=== PATIENT | female | born 1940 | race Caucasian/White ===

== ENCOUNTER 2017-11-12 10:02 | Outpatient (CLI) | payer MEDICARE | END 2017-11-12 10:03 | disposition home or self-care (01) | LOC: BICMAMMO 10:02 | PROVIDERS: ATTEND Internal Medicine | DX: Z12.31 Encounter for screening mammogram for malignant neoplasm of breast (principal); Z13.820 Encounter for screening for osteoporosis; Z78.0 Asymptomatic menopausal state; M81.0 Age-related osteoporosis without current pathological fracture; M85.852 Other specified disorders of bone density and structure, left thigh; R92.1 Mammographic calcification found on diagnostic imaging of breast | CPT/HCPCS: 77063; 77067; 77080 ==

== ENCOUNTER 2017-12-20 14:34 | Outpatient (CLI) | payer MEDICARE ==
--- NOTE | 2017-12-20 16:52 | RAD ---
PA AND LATERAL VIEWS CHEST: Date: 12/20/17 HISTORY: Cough. FINDINGS: The heart size is normal. The aorta is tortuous. The lungs are well expanded without lobar consolidat ion, pneumothoraces, or pleural effusions. There are changes of old granulomatous disease. No acute o sseous abnormalities are seen. IMPRESSION: No radiographic evidence of acute cardiopulmonary process. POS: [facility]
== END 2017-12-20 14:35 | disposition home or self-care (01) ==
LOC: SCSRAD 14:34
PROVIDERS: ATTEND Internal Medicine
DX: R05 Cough (principal)
CPT/HCPCS: 71046

== ENCOUNTER 2019-05-30 07:00 | Outpatient (CLI) | payer MEDICARE ==
[2019-05-30 11:25] LABS: #Basophils 0.1 thou/uL (0.0-0.2); #Eosinphils 0.1 thou/uL (0.0-0.7); #Lymphocytes 2.5 thou/uL (1.20-3.40); #Monocytes 0.5 thou/uL (0.11-0.59); #Neutrophils 3.4 thou/uL (1.40-6.50); %Basophils 0.9 % (0.0-1.0); %Eosinophils 1.3 % (0.0-10.0); %Lymphocytes 37.6 % (21.0-51.0); %Monocytes 7.4 % (0.0-10.0); %Neutrophils 52.8 % (42.0-75.0); Mean Corpuscular Hemoglobin 30.1 pg (27.0-31.0); Mean Corpuscular Volume 91.2 fL (78.0-98.0); Platelet Count 273 thou/uL (130-400); RBC Distribution Width 11.5 % (11.5-14.5); Red Blood Cell (RBC) Count 4.97 mill/uL (4.20-5.40); White Blood Cell (WBC) Count 6.5 thou/uL (4.8-10.8)
[2019-05-30 11:29] LABS: Bacteria/HPF None Seen HPF (None Seen); Bilirubin Negative (Negative); Blood, Urine 1+ (Negative); Clarity Turbid (Clear); Glucose, Urine (Dipstick) Normal (Negative); Leukocyte 250 Leu/uL (Negative); Nitrite Negative (Negative); Protein, Urine (Dipstick) 10 mg/dL (Neg-Trace); Urobilinogen Normal mg/dL (Less than 2)
== END 2019-05-30 07:01 | disposition home or self-care (01) ==
LOC: LABBT 07:00
PROVIDERS: ATTEND Orthopaedic Surgery Hand Surgery
DX: Z01.812 Encounter for preprocedural laboratory examination (principal); M65.332 Trigger finger, left middle finger
CPT/HCPCS: 81001; 85025; 93005; 93010

== ENCOUNTER 2019-06-03 05:49 | Day surgery (SDC) | payer MEDICARE ==
[2019-05-30 10:24] VITALS: BMI 22.7
[2019-06-03] MEDS ORDERED: Bupivacaine PF 0.5% 30 ML VIAL ONE (06:22)
[2019-06-03] MEDS ORDERED: Bacitracin Zinc Ointment 30 gm TUBE ONE (06:22)
[2019-06-03] MEDS ORDERED: Betamet Acet/Betamet Na Ph 30 MG/5 ML VIAL ONE (06:22)
[2019-06-03] MEDS ORDERED: Midazolam HCl 2 mg/2 ml Vial ONE (06:44)
[2019-06-03] MEDS ORDERED: Fentanyl 100 MCG/2 ML VIAL ONE (07:23)
[2019-06-03] MEDS ORDERED: Lidocaine 1% PF 5 ML VIAL ONE (10:46)
[2019-06-03] MEDS ORDERED: Dexamethasone 20 MG/5 ML VIAL ONE (10:46)
[2019-06-03] MEDS ORDERED: Glycopyrrolate 0.2 MG/ML 5 ML SYRINGE ONE (10:46)
[2019-06-03] MEDS ORDERED: Ketorolac Tromethamine 30 MG/ML VIAL ONE (10:46)
[2019-06-03] MEDS ORDERED: EPHEDRINE 25 MG/5 ML SYRINGE ONE (10:46)
[2019-06-03] MEDS ORDERED: PROPOFOL 200 MG/20 ML VIAL ONE (10:46)
[2019-06-03] MEDS ORDERED: Ondansetron PF 4 MG/2 ML Vial ONE (10:46)
--- NOTE | 2019-06-03 10:49 | OP ---
DATE OF PROCEDURE: 06/03/2019 PREOPERATIVE DIAGNOSIS: Left middle finger A1 sarah tenosynovitis with triggering. POSTOPERATIVE DIAGNOSIS: Left middle finger A1 sarah tenosynovitis with triggering. PROCEDURE PERFORMED: Left A1 sarah trigger digit release of middle finger. COMPLICATIONS: None. ANESTHESIA: General LMA technique by YOLANDA Benito augmented by total of 16 mL of 0.5% Marcaine local infiltrated block with no epinephrine. INDICATIONS: Failed conservative treatment for diagnosis listed above. DESCRIPTION OF PROCEDURE: After successful general LMA technique, the limb was prepped and draped. The patient had time-out done appropriately. We then outlined incision following the MP joint flexion crease line, which curved as forward distally as it did radially at the level of the middle finger. We then exsanguinated the limb, inflated tourniquet to 250 mmHg pressure, had time-out done appropriately. We gave 8 mL of 0.5% Marcaine prior to procedure after we outlined incision, 1.5 cm. We carried through skin and subcutaneous tissue along the crease and dissected bluntly until we identified the radial and ulnar digital nerves. We retracted them from the center of the field as well as distally and found the A1 sarah. We released some fascia proximally, performed a direct visualization, released the A1 sarah in the midline with a Aiken blade and then inspected the tendon underneath. There was no marked tenosynovitis and no mass such as a ganglion seen. We deflated the tourniquet, obtained hemostasis. We placed a 5 mL of Celestone in the wound, doing several cycles of flexion extension to make sure it was smooth and it was. We then closed the incision with interrupted 4-0 nylon in a mattress pattern and the patient left the operating room without evidence of anesthetic or operative complication. Job ID: [id number]
== END 2019-06-03 10:05 | disposition home or self-care (01) ==
LOC: SDC 05:49
PROVIDERS: ATTEND Orthopaedic Surgery Hand Surgery
PROC: 0LN80ZZ Release Left Hand Tendon, Open Approach (ICD-10-PCS; principal; 2019-06-03)
DX: M65.332 Trigger finger, left middle finger (principal); M65.842 Other synovitis and tenosynovitis, left hand; E78.5 Hyperlipidemia, unspecified; F32.9 Major depressive disorder, single episode, unspecified; K21.9 Gastro-esophageal reflux disease without esophagitis; Z87.891 Personal history of nicotine dependence; Z79.899 Other long term (current) drug therapy; Z88.8 Allergy status to other drugs, medicaments and biological substances
CPT/HCPCS: J0690; J0702; J1100; J1885; J2001; J2250; J2405; J2704; J3010; J3490; S0020

== ENCOUNTER 2021-09-28 11:00 | Outpatient (CLI) | payer MEDICARE | END 2021-09-28 11:01 | disposition home or self-care (01) | LOC: SCSRAD 11:00 | PROVIDERS: ATTEND Internal Medicine | DX: M25.562 Pain in left knee (principal) ==

== ENCOUNTER 2021-10-03 12:37 | Outpatient (CLI) | payer MEDICARE | END 2021-10-03 12:38 | disposition home or self-care (01) | LOC: SCSMRI 12:37 | PROVIDERS: ATTEND Internal Medicine | DX: M25.562 Pain in left knee (principal); S83.242A Other tear of medial meniscus, current injury, left knee, initial encounter; M94.262 Chondromalacia, left knee; M84.362A Stress fracture, left tibia, initial encounter for fracture ==

== ENCOUNTER 2021-12-30 10:25 | Inpatient (IN) | payer MEDICARE ==
[2021-12-30] MEDS ORDERED: hydrALAZINE 20 MG/ML VIAL SLOW IVP PRN (14:46)
[2021-12-30] MEDS ORDERED: TETANUS, DIPHTHERIA TOX,ADULT (TDVAX) 0.5 ML VIAL IM ONE (14:46)
[2021-12-30] MEDS ORDERED: Ondansetron PF 4 MG/2 ML Vial IVP PRN (14:46)
[2021-12-30] MEDS ORDERED: traMADol HCl 50 MG TAB PO PRN (14:49)
[2021-12-30] MEDS ORDERED: Cyclobenzaprine 10 MG TAB PO PRN (14:49)
[2021-12-30] MEDS ORDERED: fentaNYL Citrate/PF 100 MCG/2 ML SYRINGE ONE (15:06)
[2021-12-30] MEDS ORDERED: Sodium Chloride 0.9% 100 ML ONE (15:17)
[2021-12-30] MEDS ORDERED: CEFAZOLIN 2 GM VIAL ONE (15:17)
[2021-12-30] MEDS ORDERED: PROPOFOL 200 MG/20 ML VIAL ONE (15:33)
[2021-12-30] MEDS ORDERED: Glycopyrrolate 0.2 MG/ML 5 ML SYRINGE ONE (15:33)
[2021-12-30] MEDS ORDERED: Ondansetron PF 4 MG/2 ML Vial ONE (15:33)
[2021-12-30] MEDS ORDERED: PHENYLEPHRINE-NS 100 MCG/ML 10 ML SYRINGE ONE (15:33)
[2021-12-30] MEDS ORDERED: Dexamethasone 20 MG/5 ML VIAL ONE (15:33)
[2021-12-30] MEDS ORDERED: ePHEDrine 50 MG/ML VIAL ONE (15:33)
[2021-12-30] MEDS ORDERED: Promethazine HCl 25 MG/ML VIAL IM PRN (16:47)
[2021-12-30] MEDS ORDERED: Promethazine HCl 25 MG/ML VIAL IVPB PRN (16:47)
[2021-12-30] MEDS ORDERED: Ondansetron HCl/PF 4 MG/2 ML Vial IVP PRN (16:47)
[2021-12-30] MEDS ORDERED: Fentanyl 100 MCG/2 ML VIAL ONE (17:27)
[2021-12-30] MEDS: Acetaminophen 325 MG TAB PO SCH ×2 (19:20→20:57)
[2021-12-30] MEDS: Sodium Chloride 0.9% 1,000 ML IV SCH (19:21)
[2021-12-30] MEDS: traMADol HCl 50 MG TAB PO SCH (19:24)
[2021-12-30 19:59] VITALS: BMI 23.8
[2021-12-30] MEDS ORDERED: CEFAZOLIN 2 GM in Sodium Chloride 0.9% 100 ML IVPB SCH (20:00)
[2021-12-30] MEDS: Atorvastatin Calcium 10 MG TAB PO SCH (20:56)
[2021-12-30] MEDS: Senokot S 8.6-50 MG TAB PO SCH (20:56)
[2021-12-30] MEDS: Famotidine/PF 20 mg/2ml Vial SLOW IVP SCH (20:57)
[2021-12-31] MEDS: Sodium Chloride 0.9% 1,000 ML IV SCH ×3 (00:42→15:15)
[2021-12-31] MEDS: traMADol HCl 50 MG TAB PO SCH ×4 (00:42→18:38)
[2021-12-31] MEDS: Acetaminophen 325 MG TAB PO SCH ×2 (03:23→15:15)
[2021-12-31 05:55] LABS: #Lymphocytes 1.4 thou/uL (1.20-3.40); #Monocytes 0.7 thou/uL (0.11-0.59); #Neutrophils 8.1 thou/uL (1.40-6.50); %Basophils 0.1 % (0.0-1.0); %Eosinophils 0.1 % (0.0-10.0); %Lymphocytes 13.5 % (21.0-51.0); %Monocytes 6.6 % (0.0-10.0); %Neutrophils 79.7 % (42.0-75.0); Hemoglobin 11.4 g/dL (12.0-16.0); Mean Corpuscular HGB CONC 32.6 g/dL (32.0-36.0); Mean Corpuscular Hemoglobin 30.9 pg (27.0-31.0); Mean Corpuscular Volume 94.6 fL (78.0-98.0); Mean Platelet Volume 7.8 fL (7.4-10.4); Platelet Count 252 thou/uL (130-400); RBC Distribution Width 11.4 % (11.5-14.5); Red Blood Cell (RBC) Count 3.71 mill/uL (4.20-5.40); White Blood Cell (WBC) Count 10.1 thou/uL (4.8-10.8)
[2021-12-31 06:09] LABS: PTT 27.4 sec (22.9-36.1); Prothrombin Time 13.2 sec (12.0-14.7)
[2021-12-31 06:13] LABS: Anion Gap 11 mmol/L (10-20); BUN (Urea Nitrogen) 13 mg/dL (9.8-20.1); Calc. Creatinine Clearance 67 mL/min (70-130); Calcium 8.8 mg/dL (7.8-10.44); Carbon Dioxide 25 mmol/L (23-31); Chloride 110 mmol/L (98-107); Estimated GFR 83; Glucose 110 mg/dL (83-110); Potassium 4.7 mmol/L (3.5-5.1); Sodium 141 mmol/L (136-145)
[2021-12-31] MEDS: Senokot S 8.6-50 MG TAB PO SCH ×2 (09:01→22:04)
[2021-12-31] MEDS: Enoxaparin Sodium 40 MG/0.4 ML SYRINGE SC SCH (09:01)
[2021-12-31] MEDS: Acetaminophen 500 MG TAB PO SCH ×3 (09:16→22:04)
[2021-12-31] MEDS: Famotidine/PF 20 mg/2ml Vial SLOW IVP SCH ×2 (09:17→22:04)
[2021-12-31] MEDS: Polyethylene Glycol 3350 17 GM Packet PO SCH (09:17)
[2021-12-31] MEDS ORDERED: Boostrix 0.5 ML (Tdap) VIAL (>/=7 yrs of age) IM ONE (15:00)
[2021-12-31] MEDS: Atorvastatin Calcium 10 MG TAB PO SCH (22:04)
[2022-01-01] MEDS: traMADol HCl 50 MG TAB PO SCH ×5 (00:53→23:25)
[2022-01-01] MEDS: Sodium Chloride 0.9% 1,000 ML IV SCH ×3 (00:56→17:31)
[2022-01-01] MEDS: Acetaminophen 500 MG TAB PO SCH ×4 (03:00→21:25)
[2022-01-01] MEDS: Enoxaparin Sodium 40 MG/0.4 ML SYRINGE SC SCH (09:25)
[2022-01-01] MEDS: Senokot S 8.6-50 MG TAB PO SCH ×2 (09:26→21:26)
[2022-01-01] MEDS: Famotidine/PF 20 mg/2ml Vial SLOW IVP SCH ×3 (09:26→21:27)
[2022-01-01] MEDS: Polyethylene Glycol 3350 17 GM Packet PO SCH (09:26)
[2022-01-01] MEDS: Atorvastatin Calcium 10 MG TAB PO SCH (21:25)
[2022-01-02] MEDS: Sodium Chloride 0.9% 1,000 ML IV SCH (01:36)
[2022-01-02] MEDS: Acetaminophen 500 MG TAB PO SCH ×4 (04:19→20:16)
[2022-01-02] MEDS: traMADol HCl 50 MG TAB PO SCH ×4 (05:16→23:01)
[2022-01-02 05:43] LABS: #Eosinphils 0.3 thou/uL (0.0-0.7); #Lymphocytes 1.9 thou/uL (1.20-3.40); #Monocytes 0.6 thou/uL (0.11-0.59); #Neutrophils 4.2 thou/uL (1.40-6.50); %Basophils 0.5 % (0.0-1.0); %Eosinophils 3.8 % (0.0-10.0); %Lymphocytes 27.9 % (21.0-51.0); %Monocytes 7.9 % (0.0-10.0); %Neutrophils 59.9 % (42.0-75.0); Hemoglobin 10.6 g/dL (12.0-16.0); Mean Corpuscular HGB CONC 32.5 g/dL (32.0-36.0); Mean Corpuscular Hemoglobin 30.4 pg (27.0-31.0); Mean Corpuscular Volume 93.6 fL (78.0-98.0); Mean Platelet Volume 7.7 fL (7.4-10.4); Platelet Count 211 thou/uL (130-400); RBC Distribution Width 11.4 % (11.5-14.5); Red Blood Cell (RBC) Count 3.48 mill/uL (4.20-5.40); White Blood Cell (WBC) Count 6.9 thou/uL (4.8-10.8)
[2022-01-02 05:57] LABS: Anion Gap 11 mmol/L (10-20); BUN (Urea Nitrogen) 10 mg/dL (9.8-20.1); Calc. Creatinine Clearance 73 mL/min (70-130); Calcium 8.5 mg/dL (7.8-10.44); Carbon Dioxide 27 mmol/L (23-31); Chloride 105 mmol/L (98-107); Estimated GFR 88; Glucose 91 mg/dL (83-110); Magnesium 1.9 mg/dL (1.6-2.6); Phosphorus 3.3 mg/dL (2.3-4.7); Potassium 3.8 mmol/L (3.5-5.1); Sodium 139 mmol/L (136-145)
[2022-01-02] MEDS: Senokot S 8.6-50 MG TAB PO SCH ×2 (08:27→20:17)
[2022-01-02] MEDS: Polyethylene Glycol 3350 17 GM Packet PO SCH (08:27)
[2022-01-02] MEDS: Enoxaparin Sodium 40 MG/0.4 ML SYRINGE SC SCH (08:28)
[2022-01-02] MEDS: Famotidine/PF 20 mg/2ml Vial SLOW IVP SCH (09:09)
[2022-01-02] MEDS: Atorvastatin Calcium 10 MG TAB PO SCH (20:17)
[2022-01-03] MEDS: Acetaminophen 500 MG TAB PO SCH ×3 (04:08→14:00)
[2022-01-03] MEDS: traMADol HCl 50 MG TAB PO SCH ×2 (05:22→11:09)
[2022-01-03] MEDS: Enoxaparin Sodium 40 MG/0.4 ML SYRINGE SC SCH (08:52)
[2022-01-03] MEDS: Senokot S 8.6-50 MG TAB PO SCH (08:52)
[2022-01-03] MEDS: Polyethylene Glycol 3350 17 GM Packet PO SCH (08:52)
[2022-01-03 15:54] VITALS: BP 122/58; TEMP 98.3
== END 2022-01-03 15:45 | disposition home or self-care (01) | DRG 494 ==
LOC: SURG A 13:45
PROVIDERS: ADMIT Surgery; ATTEND Surgery
PROC: 0QSH06Z Reposition Left Tibia with Intramedullary Internal Fixation Device, Open Approach (ICD-10-PCS; principal; 2021-12-30)
DX: S82.302A Unspecified fracture of lower end of left tibia, initial encounter for closed fracture (principal); S82.402A Unspecified fracture of shaft of left fibula, initial encounter for closed fracture; E78.5 Hyperlipidemia, unspecified; W18.30XA Fall on same level, unspecified, initial encounter; Y92.009 Unspecified place in unspecified non-institutional (private) residence as the place of occurrence of the external cause; Z79.899 Other long term (current) drug therapy; Z90.49 Acquired absence of other specified parts of digestive tract; Z90.710 Acquired absence of both cervix and uterus; Z98.890 Other specified postprocedural states
CPT/HCPCS: 36415; 76000; 80048; 83735; 84100; 85025; 85610; 85730; 86850; 86900; 86901; 90715; C1713; C1769; J0690; J1100; J1650; J2405; J2704; J3010; J3490; J7050; S0028